=== PATIENT | female | born 1950 | race Caucasian/White ===

== ENCOUNTER 2017-09-05 18:17 | Inpatient (IN) | payer MEDICAID, OTHER ==
[~2017-09-05] VITALS: Ht 157.5 cm; Wt 47.2 kg
[2017-09-05] MEDS ORDERED: ACETAMINOPHEN 500 MG TAB PO STA (18:24)
[2017-09-05] MEDS ORDERED: SODIUM CHLORIDE 0.9% 1L BAG IV* STA (18:24)
[2017-09-05] MEDS ORDERED: CEFEPIME 2GM/50 ML (PMX) 50 ML IVPB STA (18:31)
[2017-09-05] MEDS ORDERED: VANCOMYCIN 1 GM (PMX) 250 ML IVPB ONE (19:00)
--- NOTE | 2017-09-05 19:30 | ERD ---
ER Documentation Chief Complaint Chief Complaint FEVER & DIARRHEA TODAY HPI This is a 67-year-old female who presents with her daughter and granddaughter. They are interpreting for the patient. They state that just today the patient started to develop fever, generalized body aches and malaise. She is describing generalized diffuse cramping abdominal discomfort with several episodes of loose stool. No recent vomiting. Mild headache that is frontal and gradual onset without rash or neck stiffness. No recent cough or shortness of breath noted. No abdominal surgical history. The patient is a diabetic. ROS All systems reviewed and are negative except as per history of present illness. Allergies Allergies: Coded Allergies: No Known Allergy (Unverified , 09/05/17) PMhx/Soc History of Surgery: Yes (C-SECTIONS) Anesthesia Reaction: No Hx Neurological Disorder: No Hx Respiratory Disorders: No Hx Cardiac Disorders: No Hx Psychiatric Problems: No Hx Miscellaneous Medical Probl: Yes (DM) Hx Alcohol Use: No Hx Substance Use: No Hx Tobacco Use: No Smoking Status: Never smoker FmHx Family History: diabetes Physical Exam Vitals Vital Signs Date Time Temp Pulse Resp B/P Pulse Ox O2 Delivery O2 Flow Rate FiO2 09/05/17 20:33 99.7 95 26 121/67 99 Room Air 09/05/17 19:30 100.0 100 16 147/58 97 Room Air 09/05/17 18:30 100.4 94 21 164/68 100 Room Air 09/05/17 18:19 103.5 106 22 158/70 98 Physical Exam General: Ill-appearing and in slight distress. Head: Normocephalic, atraumatic. Eyes: Pupils equally reactive, EOM intact ENT: Moist mucous membranes Neck: Supple, no lymphadenopathy Respiratory: Lungs clear bilaterally, no distress Cardiovascular: Tachycardia, no murmurs, rubs, or gallops Abdominal: Soft, mild diffuse tenderness without rebound or guarding, no peritonitis : Deferred MSK: No edema, no unilateral swelling, 5/5 strength Neurologic: Alert and oriented, moving all extremities, normal speech, no focal weakness, no cerebellar signs, no meningismus Skin: No rash Psych: Tearful mood Result Diagram: 09/05/17 1835 09/05/17 183 Results 24 hrs Laboratory Tests Test 09/05/17 18:35 09/05/17 20:13 10/29/17 20:45 White Blood Count 16.810^3/ul Red Blood Count 3.8210^6/ul Hemoglobin 11.4g/dl Hematocrit 34.2% Mean Corpuscular Volume 89.5fl Mean Corpuscular Hemoglobin 29.8pg Mean Corpuscular Hemoglobin Concent 33.3g/dl Red Cell Distribution Width 12.7% Platelet Count 38769^3/UL Mean Platelet Volume 9.8fl Neutrophils % 76.5% Lymphocytes % 17.5% Monocytes % 4.7% Eosinophils % 0.7% Basophils % 0.2% Nucleated Red Blood Cells % 0.0/100WBC Neutrophils # 12.910^3/ul Lymphocytes # 2.910^3/ul Monocytes # 0.810^3/ul Eosinophils # 0.110^3/ul Basophils # 0.010^3/ul Nucleated Red Blood Cells # 0.010^3/ul Prothrombin Time 12.8Sec Prothrombin Time Ratio 1.0 INR International Normalized Ratio 0.96 Activated Partial Thromboplast Time 28.0Sec Sodium Level 137mmol/L Potassium Level 4.4mmol/L Chloride Level 102mmol/L Carbon Dioxide Level 21mmol/L Anion Gap 18 Blood Urea Nitrogen 16mg/dl Creatinine 0.61mg/dl Glucose Level 445mg/dl Lactic Acid Level 1.7mmol/L Calcium Level 9.2mg/dl Total Bilirubin 0.7mg/dl Direct Bilirubin 0.00mg/dl Indirect Bilirubin 0.7mg/dl Aspartate Amino Transf (AST/SGOT) 26IU/L Alanine Aminotransferase (ALT/SGPT) 25IU/L Alkaline Phosphatase 237IU/L Troponin I < 0.012ng/ml Total Protein 7.7g/dl Albumin 4.4g/dl Globulin 3.30g/dl Albumin/Globulin Ratio 1.33 Lipase 68U/L Bedside Glucose 352mg/dL Urine Color STRAW Urine Clarity CLEAR Urine pH 7.0 Urine Specific [place] 1.016 Urine Ketones NEGATIVEmg/dL Urine Nitrite POSITIVEmg/dL Urine Bilirubin NEGATIVEmg/dL Urine Urobilinogen NEGATIVEmg/dL Urine Leukocyte Esterase TRACELeu/ul Urine Microscopic RBC 4/HPF Urine Microscopic WBC 3/HPF Urine Bacteria FEW/HPF Urine Hemoglobin 1+mg/dL Urine Glucose 3+mg/dL Urine Total Protein NEGATIVEmg/dl Current Medications Medications (Trade) Dose Ordered Sig/Herbie Route PRN Reason Start Time Stop Time Status Last Admin Dose Admin Sodium Chloride (NS) 1,410 ml BOLUS OVER 2 HOURS STAT IV* 09/05/17 18:24 09/05/17 18:25 DC 09/05/17 18:58 Acetaminophen 1000 mg 1,000 mg ONCE STAT PO 09/05/17 18:24 09/05/17 18:25 DC 09/05/17 18:58 Cefepime HCl 50 ml @ 100 mls/hr ONCE STAT IVPB 09/05/17 18:31 09/05/17 19:00 DC 09/05/17 18:58 Vancomycin HCl (Vancocin) 250 ml @ 125 mls/hr ONCE ONCE IVPB 09/05/17 19:00 09/05/17 20:59 DC 09/05/17 18:58 Insulin Human Lispro (Humalog) 8 unit ONCE STAT SC 09/05/17 19:39 09/05/17 19:50 DC 09/05/17 19:56 Ondansetron HCl (Zofran Inj) 4 mg BRIDGE ORDER PRN IV NAUSEA AND/OR VOMITING 09/05/17 21:30 09/06/17 21:29 Acetaminophen (Tylenol Tab) 650 mg ER BRIDGE PRN PO MILD PAIN/FEVER 09/05/17 21:30 09/06/17 21:29 Procedures/MDM EKG, MONITORS, & DIAGNOSTIC IMAGING: EKG: I reviewed and interpreted a 12-lead EKG. Rhythm: Normal sinus rhythm Ectopy: None Intervals: No abnormalities ST segments: No elevations or depressions T waves: No contiguous inversions Chest x-ray: I reviewed and interpreted a 1 view of the chest Mediastinum: No enlargement Cardiac silhouette: No cardiomegaly Airspace: Patchy interstitial process left greater than right concern for pneumonia Bones: No evidence of fracture CT abdomen and pelvis: IMPRESSION: 1. Bronchiolitis in the visualized right middle lobe with a sub solid 10 mm nodule in the medial basal right lower lobe with surrounding ground-glass opacities, which may be infectious/inflammatory in nature given the additional findings. Additional nonspecific ground-glass opacities scattered throughout both lungs with evidence of bronchitis. Dedicated chest CT may be warranted for further evaluation. 2. Distended urinary bladder with mild bilateral hydroureteronephrosis, but no radiopaque obstructing stone identified. Differential considerations include neurogenic bladder and bladder outlet obstruction. 3. Simple 4 cm right adnexal cyst. Pelvic ultrasound is recommended for further evaluation. 4. Vascular calcifications consistent with atherosclerosis. RPTAT: HLBP LAB INTERPRETATION: Cytosis but normal lactic acid, possible urinary tract infection MEDICAL DECISION MAKING: The patient presents with significant fever of 103.5 with abdominal pain and diarrhea. Her presentation is very concerning for sepsis of unclear etiology, consider viral process as well as influenza. No risk factors for C. difficile colitis. The patient does describe generalized abdominal pain prompting laboratory testing and CT imaging of the abdomen and pelvis. No clinical signs or symptoms concerning for meningitis. The patient will require sepsis screening, fluid resuscitation, symptom control and likely empiric antibiotics. The patient will likely require hospitalization. Strong suspicion for urinary tract infection ER COURSE: Patient was written for 30 cc/kg bolus of normal saline, blood cultures were taken. The patient was given empiric vancomycin and cefepime. Antipyretics provided. The patient has hyperglycemia. Screening for DKA will be initiated. Fluids have already been initiated. The patient has Sirs with a potential source concerning for sepsis however no evidence of severe sepsis or septic shock. The patient was given appropriate fluids and antibiotics and has defervesced and vital signs have normalized. She is hemodynamically stable and does not require central line or pressors. Hyperglycemia noted without diabetic ketoacidosis, Humalog provided subcutaneously. IV fluids provided. Trending down appropriately. I kept the patient and/or family informed of laboratory and diagnostic imaging results throughout the emergency room course. DISPOSITION PLAN: Med/Surgical admission CONSULTATION: Accepting care team and consultations: I discussed the current laboratory data, diagnostic imaging and emergency care provided. Admitting team: Dr. Goodwin Admitting team indication: Insurance directed Sepsis Documentation: Patient's infectious symptoms have not stabilized and the patient is at risk of rapid decompensation. The patient will be admitted for careful hydration, antibiotic therapy, and infectious source control. SEVERE SEPSIS CRITERIA: Infectious source: Urinary tract infection versus pneumonia End organ damage indicated by: No endorgan dysfunction noted SEPSIS MANAGEMENT Time of recognition of severe sepsis/septic shock: Approximately 9 PM 3 HOUR BUNDLE Blood cultures x 2 before broad-spectrum antibiotics: Yes 30 ml/kg NS bolus Completed Initial lactate less than 2 Repeat lactate pending SEPTIC SHOCK ASSESSMENT: Septic shock criteria not met No lactic acid > 4.0 No persistent hypotension (SBP < 90 or 40 mmHg drop, MAP < 65) despite 30 mL/kg IV fluid bolus VOLUME REASSESSMENT FOR SEPTIC SHOCK: Not indicated PERSISTENT HYPOTENSION TREATMENT: Comfort care No Central line Not Required Vasopressor started Not required I considered further perfusion assessment with CVP measurement, SCVO2, bedside ultrasound volume assessment, passive leg raise, trial of further fluid bolus. And proceeded with 30 ml/kg fluid bolus of NSS, broad spectrum antbiotics, and admission. CRITICAL CARE Critical care time 35 minutes Emergent fluid management while maintaining close respiratory support. Provision of immediate and broad-spectrum antibiotic therapy. Simultaneous assessment for possible sources in order to direct targeted therapy. Consideration for invasive and chemical support to prevent cardiopulmonary collapse. Critical care time is independent of procedures performed. Departure Diagnosis: Primary Impression: Sepsis Sepsis type: sepsis due to unspecified organism Qualified Code: A41.9 - Sepsis, due to unspecified organism Additional Impressions: Urinary tract infection Urinary tract infection type: acute cystitis Hematuria presence: without hematuria Qualified Code: N30.00 - Acute cystitis without hematuria Community acquired pneumonia Laterality: left Lung location: unspecified part of lung Qualified Code: J18.9 - Community acquired pneumonia of left lung, unspecified part of lung Hyperglycemia Condition: Stable QUETA SALAZAR MD Sep 05, 2017 19:30
[2017-09-05] MEDS ORDERED: INSULIN LISPRO 100 UNIT/ML VIAL SC STA (19:39)
--- NOTE | 2017-09-05 19:54 | RADRPT ---
PROCEDURE: CT abdomen and pelvis without contrast. CLINICAL INDICATION: Sepsis. TECHNIQUE: CT of the abdomen and pelvis without contrast was performed on a multidetector high-reso lution CT scanner. Coronal and sagittal reformatted images were obtained from the axial source image s. Images were reviewed on a high-resolution PACS workstation. The total exam CTDI equals 7.35 mGy a nd the total exam DLP equals 409.83 mGy-cm. One or more of the following dose reduction techniques were used: - Automated exposure control. - Adjustment of the mA and/or kV according to patient size. - Use of iterative reconstruction technique. COMPARISON: None available. FINDINGS: Visualized lower thorax: There is a 10 mm solid nodule in the medial basal left lower lobe with lakia rounding ground-glass opacity. There is scattered tree in bud and ground-glass opacities within the visualized inferior right middle lobe and patchy ground-glass opacity elsewhere throughout both lung bases. There is bronchial wall thickening. The visualized heart is unremarkable. Hepatobiliary system and spleen: The liver is grossly unremarkable. There is no intra or extrahepat ic biliary ductal dilatation. The gallbladder is grossly unremarkable. The spleen is grossly unremar kable. The pancreas is grossly unremarkable. Adrenal glands and genitourinary system: The adrenal glands are grossly unremarkable. There is mild bilateral hydronephrosis and hydroureter with no radiopaque obstructing stone identified. The urina ry bladder is distended, but otherwise grossly unremarkable. There is a simple 4 cm right adnexal c yst. The uterus and left adnexa are grossly unremarkable. Gastrointestinal system: There is no bowel wall thickening or evidence of obstruction. The appendi x is not identified, but there is no focal inflammatory process in the right lower quadrant. Peritoneum, vascular, and lymphatics: There is no free intraperitoneal air or free fluid. There is no mesenteric or retroperitoneal adenopathy. There are atherosclerotic changes of the aorta, which i s nonaneurysmal. Musculoskeletal system and soft tissues: There is mild to moderate multilevel degenerative enthesop athy. There are no concerning osseous lesions. The soft tissues are unremarkable. IMPRESSION: 1. Bronchiolitis in the visualized right middle lobe with a sub solid 10 mm nodule in the medial ba yuridia right lower lobe with surrounding ground-glass opacities, which may be infectious/inflammatory i n nature given the additional findings. Additional nonspecific ground-glass opacities scattered thro ughout both lungs with evidence of bronchitis. Dedicated chest CT may be warranted for further evalu ation. 2. Distended urinary bladder with mild bilateral hydroureteronephrosis, but no radiopaque obstructi ng stone identified. Differential considerations include neurogenic bladder and bladder outlet obstr uction. 3. Simple 4 cm right adnexal cyst. Pelvic ultrasound is recommended for further evaluation. 4. Vascular calcifications consistent with atherosclerosis. RPTAT: HLBP .Amrik Lugo MD, Date Time Electronically viewed and signed by .Amrik Lugo MD, on 09/05/2017 19:54 .P/
[2017-09-05] MEDS ORDERED: ACETAMINOPHEN 325 MG TAB PO PRN (21:30)
[2017-09-05] MEDS ORDERED: ONDANSETRON 4 MG INJ IV PRN ×2 (21:30→23:30)
--- NOTE | 2017-09-05 21:37 | RADRPT ---
PROCEDURE: X-ray Chest. CLINICAL INDICATION: Sepsis. TECHNIQUE: Single view chest x-ray. COMPARISON: None available. FINDINGS: There are atherosclerotic changes of the aorta. The cardiomediastinal silhouette is withi n normal limits. There is patchy bibasilar atelectasis versus pneumonitis without focal consolidati on, effusion, or pneumothorax. There are no acute osseous abnormalities. IMPRESSION: 1. Patchy bibasilar subsegmental atelectasis versus pneumonitis, left greater than right. 2. Vascular calcifications consistent with atherosclerosis. RPTAT: HLBP .Amrik Lugo MD, Date Time Electronically viewed and signed by .Amrik Lugo MD, MD on 09/05/2017 21:36 .P/
[2017-09-05 21:47] VITALS: PULSE 80; TEMP 98.9
[2017-09-05 22:23] VITALS: BP 106/57; RESP 18; RESP 80
[2017-09-05 23:41] VITALS: Ht 157.5 cm; Wt 47.2 kg
[2017-09-06] MEDS ORDERED: GLUCAGON 1 MG INJ IM PRN (00:30)
[2017-09-06] MEDS ORDERED: GLUCOSE GEL 15 GRAM TUBE BUCCAL PRN (00:30)
[2017-09-06] MEDS ORDERED: DEXTROSE 50% 50 ML SYRINGE IV PRN ×2 (00:30)
[2017-09-06] MEDS ORDERED: GLUCOSE GEL 15 GRAM TUBE PO PRN ×2 (00:30)
[2017-09-06] MEDS: ACCU-CHEK XX SCH ×2 (02:00)
[2017-09-06 02:28] VITALS: BP 119/58; RESP 18
[2017-09-06] MEDS ORDERED: VANCOMYCIN IV PER PHARMACY XX SCH (05:00)
[2017-09-06 08:02] VITALS: BP 120/56; RESP 18
[2017-09-06] MEDS: INSULIN GLARGINE [LANtus] 3 ML PEN SC SCH (08:16)
[2017-09-06] MEDS: INSULIN ASPART [NOVOLOG] 3 ML PEN SC SCH ×7 (08:27→21:00)
--- NOTE | 2017-09-06 08:52 | HP ---
Date/Time of Note Date/Time of Note DATE: 09/06/17 TIME: 08:42 Assessment/Plan VTE Prophylaxis VTE Prophylaxis Intervention: heparin Lines/Catheters IV C[facility]ter Type (from [facility] Saline Lock Assessment/Plan Assessment/Plan 1. Sepsis, as evidenced by leukocytosis and fever: Pneumonia vs gastroenteritis -IV antibiotics -Follow-up culture results including respiratory culture and stool studies -If no improvement, will do throat swab 2. Pulmonary nodule and a bronchiolitis --will order a dedicated CT chest for better evaluation 3. Diabetes with hyperglycemia -Check A1c -Insulin while in-house with adjustment as needed HPI/ROS Admit Date/Time Admit Date/Time Sep 05, 2017 at 21:13 Hx of Present Illness This is a 67-year-old female with a history of diabetes who presented to the emergency department complaining of fever, abdominal pain and generalized weakness x few days. She also reported diarrhea for the past few days, 3-4 loose bowel movement per day. She reported nausea but no vomiting. She also reported sore throat for the past few days. Denied recent travel or sick contacts. When she presented to the ER, she was febrile with a temperature of 102.5. WBC 17,000, glucose 445. Chest x-ray shows patchy bilateral segmental atelectasis versus pneumonitis. CT abdomen/pelvis showed bronchiolitis, right middle lobe with 10 mm nodule. Mild bilateral hydroureteronephrosis. PMH/Family/Social Social History Smoking Status: Never smoker Exam/Review of Systems Vital Signs Vitals Vital Signs Date Time Temp Pulse Resp B/P Pulse Ox O2 Delivery O2 Flow Rate FiO2 09/06/17 08:02 98.2 81 18 120/56 99 09/05/17 21:47 Room Air Intake and Output 09/05/17 09/05/17 09/06/17 15:00 23:00 07:00 Intake Total 300 ml Balance 300 ml Exam Constitutional: other (Was sleepy but arousable. Appears somehow weak) Head: atraumatic, normocephalic Eyes: EOMI, PERRL ENMT: other (Poor dentition) Respiratory: clear to auscultation, normal air movement Cardiovascular: nl pulses, regular rate and rhythm Gastrointestinal: soft, tender Extremities: normal pulses Labs Result Diagram: 09/06/17 0516 09/06/17 05 Medications Medications Current Medications Acetaminophen (Tylenol Tab) 650 mg Q6H PRN PO PAIN AND OR ELEVATED TEMP; Start 09/05/17 at 23:30 Ondansetron HCl (Zofran Inj) 4 mg Q6H PRN IV NAUSEA AND/OR VOMITING; Start at 23:30 Diagnostic Test (Pha) (Accu-Chek) 1 ea 02 XX ; Start 09/06/17 at 02:00 Diagnostic Test (Pha) (Accu-Chek) 1 ea 02 XX ; Start 09/06/17 at 02:00 Miscellaneous Information 1 ea NOTE XX ; Start 09/06/17 at 00:30 Glucose (Glutose) 15 gm Q15M PRN PO DECREASED GLUCOSE; Start 09/06/17 at 00:30 Glucose (Glutose) 22.5 gm Q15M PRN PO DECREASED GLUCOSE; Start 09/06/17 at 00: 30 Dextrose (D50w Syringe) 25 ml Q15M PRN IV DECREASED GLUCOSE; Start 09/06/17 at 00:30 Dextrose (D50w Syringe) 50 ml Q15M PRN IV DECREASED GLUCOSE; Start 09/06/17 at 00:30 Glucagon (Glucagen) 1 mg Q15M PRN IM DECREASED GLUCOSE; Start 09/06/17 at 00: 30 Glucose (Glutose) 15 gm Q15M PRN BUCCAL DECREASED GLUCOSE; Start 09/06/17 at 00:30 Insulin Glargine 20 unit 20 unit DAILY@08 SC Last administered on 09/06/17 08 :16; Admin Dose 20 UNIT; Start 09/06/17 at 08:00 Cefepime HCl 50 ml @ 100 mls/hr Q12 IVPB ; Start 09/06/17 at 09:00 Vancomycin HCl (Vancocin) 250 ml @ 125 mls/hr Q24H IVPB ; Start 09/06/17 at 17 :00 SIMONE DÍAZ MD Sep 06, 2017 08:52
[2017-09-06] MEDS: CEFEPIME 1GM/50 ML (PMX) 50 ML IVPB SCH ×2 (09:05→20:59)
--- NOTE | 2017-09-06 09:23 | PN ---
Date/Time of Note Date/Time of Note DATE: 09/06/17 TIME: 09:23 Assessment/Plan VTE Prophylaxis VTE Prophylaxis Intervention: ambulation Lines/Catheters IV Catheter Type (from Nrsg): Saline Lock Assessment/Plan Chief Complaint/Hosp Course 67 yo female with hx DMII, came in with fever/dysuria/lower abdominal cramps. 1.Dysuria/Pelvic pain, likely 2/2 UTI /possible neurogenic bladder with bilateral hydroureteronephrosis -Insert Dockery, start Flomax,pain control PRN. -F/u Urine CS. 2.Hyperglycemia with DM11. -Add A1C to labs -Continue Lantus/premeals/ISS and titrate as needed -carb controlled diet, DM education. 3.Sepsis likely 2/2presumptive UTI vs possible tracheobronchitis -Continue abx.F/u CS. 4. Lung nodule. CT abd showed Right middle lobe with a sub solid 10 mm nodule in the medial basal right lower lobe with surrounding ground-glass opacities, solid 10 mm nodule in the medial basal right lower lobe with surrounding ground- glass opacities -Obtain dedicated chest CT with IV contrast 5.Simple 4 cm right adnexal cyst. -Pelvic ultrasound for further evaluation. -Obtain biomarkers with CA19-9 6.Anemia,likely chronic. -Monitor. Patient was seen in collaboration with . Problems: Subjective 24 Hr Interval Summary Free Text/Dictation Patient with continued lower abdominal pain. Diarrhea improved. having urinary dribbling/frequency/burning. Afebrile now. Denes SOB/Cough. Patient also reported 10kg weight loss in last [id number] also having poor appetite.Denies any melena,hematochezia,N/V Exam/Review of Systems Vital Signs Vitals Vital Signs Date Time Temp Pulse Resp B/P Pulse Ox O2 Delivery O2 Flow Rate FiO2 09/06/17 08:02 98.2 81 18 120/56 99 09/05/17 21:47 Room Air Intake and Output 09/05/17 09/05/17 09/06/17 15:00 23:00 07:00 Intake Total 300 ml Balance 300 ml Exam General: Thin-bulit, frail looking female, not in any acute distress . HEENT: Normocephalic, Atraumatic, No laceration or hematoma; Eyes: PEERL, Conjunctiva clear, Anicteric sclera Neck: Supple without any lymphadenopathy, nontender, no JVD, no carotid bruits, trachea midline, no thyromegaly Cardiac: S1, S2 auscultated, regular rhythm and rate, no mumurs or gallop Pulmonary: Normal respiratory effort. Chest clear to auscultation bilaterally, no adventitious breath sounds GI:Diffuse tenderness to lower abdomen/Pelvic area. Soft, no masses, no rebound tenderness or guarding. Bowel sounds active on all four quadrants Genitourinary: +Dysuria/frequency. Deferred Extremities: No cyanosis, clubbing, or edema. Pulses [2+] bilaterally. Full ROM on all four extremities. No focal weakness appreciated. Neurologic: Alert to person, place, time, and situation. Affect appropriate, intact sensation. Skin: Clean,dry, and intact. No ecchymosis, no rashes, or lesions Results Result Diagram: 09/06/17 0516 09/06/17 0516 Results 24 hrs Laboratory Tests Test 09/05/17 18:35 09/05/17 20:13 09/05/17 20:45 09/05/17 21:00 White Blood Count 16.8 H Red Blood Count 3.82 L Hemoglobin 11.4 L Hematocrit 34.2 L Mean Corpuscular Volume 89.5 Mean Corpuscular Hemoglobin 29.8 Mean Corpuscular Hemoglobin Concent 33.3 Red Cell Distribution Width 12.7 Platelet Count 246 Mean Platelet Volume 9.8 Neutrophils % 76.5 Lymphocytes % 17.5 Monocytes % 4.7 Eosinophils % 0.7 Basophils % 0.2 Nucleated Red Blood Cells % 0.0 Neutrophils # 12.9 H Lymphocytes # 2.9 Monocytes # 0.8 Eosinophils # 0.1 Basophils # 0.0 Nucleated Red Blood Cells # 0.0 Prothrombin Time 12.8 Prothrombin Time Ratio 1.0 INR International Normalized Ratio 0.96 Activated Partial Thromboplast Time 28.0 Sodium Level 137 Potassium Level 4.4 Chloride Level 102 Carbon Dioxide Level 21 Anion Gap 18 H Blood Urea Nitrogen 16 Creatinine 0.61 Glucose Level 445 *H Lactic Acid Level 1.7 1.9 Calcium Level 9.2 Total Bilirubin 0.7 Direct Bilirubin 0.00 Indirect Bilirubin 0.7 Aspartate Amino Transf (AST/SGOT) 26 Alanine Aminotransferase (ALT/SGPT) 25 Alkaline Phosphatase 237 H Troponin I < 0.012 Total Protein 7.7 Albumin 4.4 Globulin 3.30 H Albumin/Globulin Ratio 1.33 Lipase 68 Bedside Glucose 352 H Urine Color STRAW Urine Clarity CLEAR Urine pH 7.0 Urine Specific [place] 1.016 Urine Ketones NEGATIVE Urine Nitrite POSITIVE A Urine Bilirubin NEGATIVE Urine Urobilinogen NEGATIVE Urine Leukocyte Esterase TRACE A Urine Microscopic RBC 4 Urine Microscopic WBC 3 Urine Bacteria FEW A Urine Hemoglobin 1+ H Urine Glucose 3+ H Urine Total Protein NEGATIVE Test 09/05/17 21:51 09/05/17 23:12 09/05/17 23:18 09/06/17 05:16 Bedside Glucose 261 H 168 Lactic Acid Level 1.1 White Blood Count 13.4 #H Red Blood Count 3.26 L Hemoglobin 9.8 L Hematocrit 30.2 L Mean Corpuscular Volume 92.6 Mean Corpuscular Hemoglobin 30.1 Mean Corpuscular Hemoglobin Concent 32.5 Red Cell Distribution Width 12.9 Platelet Count 223 Mean Platelet Volume 10.2 Neutrophils % 74.0 Lymphocytes % 19.2 Monocytes % 5.5 Eosinophils % 0.7 Basophils % 0.3 Nucleated Red Blood Cells % 0.0 Neutrophils # 9.9 H Lymphocytes # 2.6 Monocytes # 0.7 Eosinophils # 0.1 Basophils # 0.0 Nucleated Red Blood Cells # 0.0 Sodium Level 141 Potassium Level 3.8 Chloride Level 112 H Carbon Dioxide Level 21 Anion Gap 12 Blood Urea Nitrogen 12 Creatinine 0.56 Glucose Level 213 # Calcium Level 8.3 L Phosphorus Level 4.1 Magnesium Level 1.8 Test 09/06/17 08:13 Bedside Glucose 215 Medications Medications Current Medications Acetaminophen (Tylenol Tab) 650 mg Q6H PRN PO PAIN AND OR ELEVATED TEMP; Start 09/05/17 at 23:30 Ondansetron HCl (Zofran Inj) 4 mg Q6H PRN IV NAUSEA AND/OR VOMITING; Start at 23:30 Diagnostic Test (Pha) (Accu-Chek) 1 ea 02 XX ; Start 09/06/17 at 02:00 Diagnostic Test (Pha) (Accu-Chek) 1 ea 02 XX ; Start 09/06/17 at 02:00 Miscellaneous Information 1 ea NOTE XX ; Start 09/06/17 at 00:30 Glucose (Glutose) 15 gm Q15M PRN PO DECREASED GLUCOSE; Start 09/06/17 at 00:30 Glucose (Glutose) 22.5 gm Q15M PRN PO DECREASED GLUCOSE; Start 09/06/17 at 00: 30 Dextrose (D50w Syringe) 25 ml Q15M PRN IV DECREASED GLUCOSE; Start 09/06/17 at 00:30 Dextrose (D50w Syringe) 50 ml Q15M PRN IV DECREASED GLUCOSE; Start 09/06/17 at 00:30 Glucagon (Glucagen) 1 mg Q15M PRN IM DECREASED GLUCOSE; Start 09/06/17 at 00: 30 Glucose (Glutose) 15 gm Q15M PRN BUCCAL DECREASED GLUCOSE; Start 09/06/17 at 00:30 Insulin Glargine 20 unit 20 unit DAILY@08 SC Last administered on 09/06/17 08 :16; Admin Dose 20 UNIT; Start 09/06/17 at 08:00 Cefepime HCl 50 ml @ 100 mls/hr Q12 IVPB Last administered on 09/06/17 09:05 ; Admin Dose 100 MLS/HR; Start 09/06/17 at 09:00 Vancomycin HCl (Vancocin) 250 ml @ 125 mls/hr Q24H IVPB ; Start 09/06/17 at 17 :00 ELVIA VASQUEZ NP Sep 06, 2017 09:23 ELVIA VASQUEZ NP Sep 06, 2017 09:23
[2017-09-06] MEDS ORDERED: IODIXANOL LOCM 100 ML BTL ONE (10:05)
[2017-09-06] MEDS ORDERED: SOD CHLORIDE 0.9% 100 ML ONE (10:05)
[2017-09-06] MEDS: SOD CHLORIDE 0.45% 1,000 ML IV SCH ×2 (11:36→23:28)
[2017-09-06] MEDS: VANCOMYCIN 500MG/NS (PMX) 100 ML IVPB SCH ×2 (11:39→23:28)
[2017-09-06 14:59] VITALS: BP 110/54; RESP 16
--- NOTE | 2017-09-06 15:54 | RADRPT ---
PROCEDURE: US Pelvis. CLINICAL INDICATION: History of adnexal cyst. TECHNIQUE: The pelvis was evaluated with transabdominal sonography in the axial and sagittal plane s. This is a limited study as the patient refused transvaginal sonography. COMPARISON: CT scan of the abdomen and pelvis dated 09/05/2017 which demonstrated a right adnexal 4 cm cyst. FINDINGS: Uterus: 4.6 x 1.8 x 3.2 cm. Endometrium: Not visualized. Right ovary: 4.4 x 3.3 x 3.1 cm. Left ovary: Not visualized. Uterine masses: None. Ovarian masses: There is a benign-appearing right ovarian cyst measuring 3.7 x 2.7 x 2.9 cm. There a re no internal echoes or septations. The left ovary is not visualized. Color Doppler and pulsed Dopp ler sonography demonstrate normal flow to the right ovary. Other pelvic masses: None. Free fluid: None. IMPRESSION: 1. Endometrium and left ovary not visualized. 2. Benign-appearing right ovarian cyst measuring 3.7 x 2.7 x 2.9 centimeter. Follow-up ultrasound i n 3 months is advised. 3. Otherwise unremarkable pelvic ultrasound. RPTAT: QQ .Stepan Walton MD, MD Date Time Electronically viewed and signed by .Stepan Walton MD, on 09/06/2017 15:53 .R/
[2017-09-06] MEDS ORDERED: VANCOMYCIN 1 GM in NS 250 ML IVPB SCH (17:00)
--- NOTE | 2017-09-06 18:28 | RADRPT ---
PROCEDURE: CT Chest with contrast. CLINICAL INDICATION: Sepsis. TECHNIQUE: CT scan of the chest with contrast was performed following the uncomplicated intravenou s administration of 85 cc of Omnipaque 350. Coronal and sagittal reformatted images were obtained f rom the axial source images. Images were reviewed on a high-resolution PACS workstation. CTDIvol (mG y): 4.84; Total Exam DLP (mGy-cm): 172.43. One or more of the following dose reduction techniques were utilized: - Automated exposure control. - Adjustment of the mA and/or kV according to patient size. - Use of iterative reconstruction technique. COMPARISON: Chest x-ray 09/05/2017. Chest x-ray 09/05/2017. FINDINGS: Limited imaging of the lower neck demonstrates a 2.5 x 1.4 x 1.7 cm solid and cystic nodule with sca ttered coarse calcification within the thyroid isthmus. The thyroid gland is diffusely enlarged and mildly heterogeneous. The heart is not enlarged. There is no pericardial effusion. There is no bulky mediastinal, hilar or axillary lymphadenopathy. Scattered small mediastinal and hilar lymph nodes are present. The thor acic aorta is normal in caliber. The main pulmonary artery is mildly enlarged. Faint ground-glass tree in bud opacities are seen within the right middle lobe and to a slightly sim ilar degree within the left lower lobe compatible with bronchiolitis. There is a small 9-10 mm subpl eural sub solid nodule of the left lower lobe, which is grossly unchanged. Mild diffuse bronchial wa ll thickening is observed. There is no dominant dense pulmonary consolidation. There is no pleural e ffusion. Limited imaging of the upper abdomen is unremarkable. Degenerative changes of the thoracic spine are observed. Body wall soft tissues are unremarkable. IMPRESSION: Right middle and left lower lobe bronchiolitis. Small sub solid nodule of the left lower lobe, unchanged. Follow-up may be obtained in 6-12 months. 2.5 cm complex solid and cystic thyroid nodule. Recommend further characterization with dedicated th yroid ultrasound. RPTAT: HLST .Ayala Killian MD, MD Date Time Electronically viewed and signed by .Ayala Killian MD, on 09/06/2017 18:27 .T/
[2017-09-06 20:12] VITALS: BP 137/63; RESP 18
[2017-09-06] MEDS: TAMSULOSIN (SR) 0.4 MG CAP PO SCH (21:00)
[2017-09-06] MEDS: ACETAMINOPHEN 325 MG TAB PO PRN (22:04)
[2017-09-07] MEDS: ACCU-CHEK XX SCH ×2 (02:00)
[2017-09-07 02:26] VITALS: BP 117/59; RESP 18
[2017-09-07 07:51] VITALS: BP 118/61; RESP 16
[2017-09-07] MEDS: INSULIN ASPART [NOVOLOG] 3 ML PEN SC SCH ×7 (08:40→20:54)
[2017-09-07] MEDS: INSULIN GLARGINE [LANtus] 3 ML PEN SC SCH (08:42)
[2017-09-07] MEDS: CEFEPIME 1GM/50 ML (PMX) 50 ML IVPB SCH ×2 (08:57→20:50)
[2017-09-07] MEDS: ALBUTEROL/IPRATROPIUM (NEB) 3 ML AMP HHN SCH ×4 (09:00→20:00)
[2017-09-07] MEDS ORDERED: GUAIFENESIN/DM 5ML CUP PO PRN (09:00)
--- NOTE | 2017-09-07 09:14 | PN ---
Date/Time of Note Date/Time of Note DATE: 09/07/17 TIME: 09:01 Assessment/Plan VTE Prophylaxis VTE Prophylaxis Intervention: ambulation Lines/Catheters IV Catheter Type (from Nrs): Saline Lock Urinary Cath still in place: Yes Reason Cath still needed: other (indicate) Assessment/Plan Chief Complaint/Hosp Course 67 yo female with hx DMII came in with diarrhea, fever/dysuria/lower abdominal cramps. 1.Dysuria/Pelvic pain, likely 2/2 neurogenic bladder with bilateral hydroureteronephrosis which is secondary to long-standing history of poorly controlled diabetes. Significantly improved after insertion of Dockery. -Continue Flomax,pain control PRN. -Repeat renal ultrasound in a.m. 2. Poorly controlled DMII. A1c 12. With good glycemic control. -Continue Lantus/premeals/ISS and titrate as needed -carb controlled diet, DM education. 3. Status post sepsis, likely secondary to possible tracheobronchitis/ pneumonitis versus gastroenteritis. -Continue abx.F/u final CS and C. difficile studies. 4. Lung nodule. Stable appearance and CT. - Follow-up CT chest recommended in 6-12 months. 5. Benign ovarian cyst. -Follow-up ultrasound in 3 months is advised. 6. Right middle and left lower lobe bronchiolitis per imaging. Currently patient without any bronchospasm and she is clinically stable. -Bronchodilators, antibiotics. -Recommend lifestyle and home remedies and outpatient pulmonary follow-up. 7.Anemia,likely chronic. H&H stable. -Monitor. 8. Diarrhea, likely gastroenteritis. Resolving. -Follow-up C. difficile studies. 9. 2.5 cm complex solid and cystic thyroid nodule. Patient with low TSH. -Obtain full thyroid panel and a dedicated thyroid ultrasound. 10. Dietary protein deficiency. -Start protein supplements. Plan: Overall, patient with improvement in her symptoms. Will have physical therapy evaluate the patient. We will also add some protein supplements to her diet. Will repeat renal ultrasound in a.m. to follow-up on hydronephrosis status. If patient remains clinically stable, she can be possibly discharged with outpatient follow-up tomorrow. Patient was seen in collaboration with . Problems: Subjective 24 Hr Interval Summary Free Text/Dictation Patient doing well. She is afebrile. Denied cough, dyspnea, chest pain, palpitation, PND or orthopnea. Her abdominal pain is noticeable. She is tolerating diet. Exam/Review of Systems Vital Signs Vitals Vital Signs Date Time Temp Pulse Resp B/P Pulse Ox O2 Delivery O2 Flow Rate FiO2 09/07/17 07:51 98.3 84 16 118/61 100 09/05/17 21:47 Room Air Intake and Output 09/06/17 09/06/17 09/07/17 15:00 23:00 07:00 Intake Total 1800 ml 1475 ml Output Total 1250 ml 800 ml Balance 550 ml 675 ml Exam General: Thin-bulit, frail looking female, not in any acute distress . HEENT: Normocephalic, Atraumatic, No laceration or hematoma; Eyes: PEERL, Conjunctiva clear, Anicteric sclera Neck: Supple without any lymphadenopathy, nontender, no JVD, no carotid bruits, trachea midline, no thyromegaly Cardiac: S1, S2 auscultated, regular rhythm and rate, no mumurs or gallop Pulmonary: Normal respiratory effort. Chest clear to auscultation bilaterally, no adventitious breath sounds GI:Soft, nontender, no masses, no rebound tenderness or guarding. Bowel sounds active on all four quadrants Genitourinary: With Dockery. Denies any discomfort. Extremities: No cyanosis, clubbing, or edema. Pulses [2+] bilaterally. Full ROM on all four extremities. No focal weakness appreciated. Neurologic: Alert to person, place, time, and situation. Affect appropriate, intact sensation. Skin: Clean,dry, and intact. No ecchymosis, no rashes, or lesions Results Result Diagram: 09/07/17 0534 09/07/17 0534 Results 24 hrs Laboratory Tests Test 09/06/17 12:07 09/06/17 14:47 09/06/17 17:22 09/06/17 20:57 Bedside Glucose 100 107 148 Hemoglobin A1c 12.0 H Lactate Dehydrogenase 351 Prealbumin 11.1 L Triglycerides Level 103 Cholesterol Level 81 L LDL Cholesterol, Calculated 13 HDL Cholesterol 47 Cholesterol/HDL Ratio 1.7 Alpha Fetoprotein 1.54 Carcinoembryonic Antigen 1.4 CA 19-9 Antigen 137.0 H Thyroid Stimulating Hormone (TSH) 0.417 L Test 09/07/17 05:34 09/07/17 08:16 White Blood Count 7.5 # Red Blood Count 3.20 L Hemoglobin 9.9 L Hematocrit 29.8 L Mean Corpuscular Volume 93.1 Mean Corpuscular Hemoglobin 30.9 Mean Corpuscular Hemoglobin Concent 33.2 Red Cell Distribution Width 12.7 Platelet Count 228 Mean Platelet Volume 9.7 Neutrophils % 56.0 Lymphocytes % 34.6 Monocytes % 7.2 Eosinophils % 1.5 Basophils % 0.4 Nucleated Red Blood Cells % 0.0 Neutrophils # 4.2 Lymphocytes # 2.6 Monocytes # 0.5 Eosinophils # 0.1 Basophils # 0.0 Nucleated Red Blood Cells # 0.0 Sodium Level 143 Potassium Level 3.5 Chloride Level 113 H Carbon Dioxide Level 24 Anion Gap 10 Blood Urea Nitrogen 9 Creatinine 0.58 Glucose Level 140 # Calcium Level 8.5 Total Bilirubin 0.5 Direct Bilirubin 0.00 Indirect Bilirubin 0.5 Aspartate Amino Transf (AST/SGOT) 20 Alanine Aminotransferase (ALT/SGPT) 30 Alkaline Phosphatase 103 # Total Protein 6.3 # Albumin 2.7 #L Globulin 3.60 H Albumin/Globulin Ratio 0.75 Bedside Glucose 190 Medications Medications Current Medications Acetaminophen (Tylenol Tab) 650 mg Q6H PRN PO PAIN AND OR ELEVATED TEMP Last administered on 09/06/17t 22:04; Admin Dose 650 MG; Start 09/05/17 at 23:30 Ondansetron HCl (Zofran Inj) 4 mg Q6H PRN IV NAUSEA AND/OR VOMITING; Start at 23:30 Diagnostic Test (Pha) (Accu-Chek) 1 ea 02 XX ; Start 09/06/17 at 02:00 Diagnostic Test (Pha) (Accu-Chek) 1 ea 02 XX ; Start 09/06/17 at 02:00 Miscellaneous Information 1 ea NOTE XX ; Start 09/06/17 at 00:30 Glucose (Glutose) 15 gm Q15M PRN PO DECREASED GLUCOSE; Start 09/06/17 at 00:30 Glucose (Glutose) 22.5 gm Q15M PRN PO DECREASED GLUCOSE; Start 09/06/17 at 00: 30 Dextrose (D50w Syringe) 25 ml Q15M PRN IV DECREASED GLUCOSE; Start 09/06/17 at 00:30 Dextrose (D50w Syringe) 50 ml Q15M PRN IV DECREASED GLUCOSE; Start 09/06/17 at 00:30 Glucagon (Glucagen) 1 mg Q15M PRN IM DECREASED GLUCOSE; Start 09/06/17 at 00: 30 Glucose (Glutose) 15 gm Q15M PRN BUCCAL DECREASED GLUCOSE; Start 09/06/17 at 00:30 Insulin Glargine 20 unit 20 unit DAILY@08 SC Last administered on 09/06/17 08 :16; Admin Dose 20 UNIT; Start 09/06/17 at 08:00 Cefepime HCl 50 ml @ 100 mls/hr Q12 IVPB Last administered on 09/06/17 20:59 ; Admin Dose 100 MLS/HR; Start 09/06/17 at 09:00 Vancomycin HCl (Vancocin) 100 ml @ 100 mls/hr Q12H IVPB Last administered on 09/06/17 23:28; Admin Dose 100 MLS/HR; Start 09/06/17 at 11:00 Tamsulosin HCl 0.4 mg 0.4 mg HS PO Last administered on 09/06/17 21:00; Admin Dose 0.4 MG; Start 09/06/17 at 21:00 Sodium Chloride (1/2 NS) 1,000 ml @ 75 mls/hr [id number] IV Last administered on 09/06/17 23:28; Admin Dose 75 MLS/HR; Start 09/06/17 at 10:30 ELVIA VASQUEZ NP Sep 07, 2017 09:13
[2017-09-07] MEDS: SOD CHLORIDE 0.45% 1,000 ML IV SCH ×2 (13:10→18:01)
[2017-09-07] MEDS: VANCOMYCIN 500MG/NS (PMX) 100 ML IVPB SCH (13:21)
[2017-09-07 14:00] VITALS: BP 147/71; RESP 16
--- NOTE | 2017-09-07 14:13 | RADRPT ---
PROCEDURE: US Thyroid. CLINICAL INDICATION: Thyroid nodule. TECHNIQUE: High-resolution sonography of the thyroid was performed in the axial and sagittal plane s. COMPARISON: CT scan of the chest dated 09/06/2017 which demonstrated a 2.5 cm nodule in the isthmu s of the thyroid. FINDINGS: The right lobe measures 3.5 x 1.6 x 1.8 cm. The left lobe measures 3.7 x 1.7 x 1.7 cm. The isthmus measures 0.5 cm. The 2.5 cm nodule in the isthmus seen on the prior CT scan is not well seen with ultrasound. There i s a benign-appearing 0.9 cm in maximal diameter hypoechoic nodule in the right lobe and a benign-candice earing 0.8 cm in maximal diameter hypoechoic nodule in the left lobe. Thyroid echogenicity is normal. The thyroid is normal in size. IMPRESSION: 1. Small bilateral thyroid nodules, with a benign appearance. No further evaluation required. 2. The 2.5 cm nodule in the isthmus seen on prior CT scan is not well seen with ultrasound. Follow- up CT scan of the neck in 12 months is advised. 3. Otherwise unremarkable study. RPTAT: QQ .Stepan Walton MD, Date Time Electronically viewed and signed by .Stepan Walton MD, on 09/07/2017 14:13 .R/
[2017-09-07] MEDS: ACETAMINOPHEN 325 MG TAB PO PRN (16:00)
[2017-09-07 19:36] VITALS: BP 125/59; RESP 18
[2017-09-07] MEDS: TAMSULOSIN (SR) 0.4 MG CAP PO SCH (20:49)
[2017-09-08] MEDS: ALBUTEROL/IPRATROPIUM (NEB) 3 ML AMP HHN SCH ×6 (00:35→20:36)
[2017-09-08] MEDS: VANCOMYCIN 500MG/NS (PMX) 100 ML IVPB SCH ×2 (01:00→02:11)
[2017-09-08 02:00] VITALS: BP 119/58; RESP 18
[2017-09-08] MEDS: ACCU-CHEK XX SCH ×2 (02:00→02:04)
[2017-09-08 07:30] VITALS: BP 125/60; RESP 16
[2017-09-08] MEDS: INSULIN ASPART [NOVOLOG] 3 ML PEN SC SCH ×7 (08:45→20:58)
[2017-09-08] MEDS: SOD CHLORIDE 0.45% 1,000 ML IV SCH (08:48)
[2017-09-08] MEDS: INSULIN GLARGINE [LANtus] 3 ML PEN SC SCH (08:55)
[2017-09-08] MEDS: CEFEPIME 1GM/50 ML (PMX) 50 ML IVPB SCH (08:56)
--- NOTE | 2017-09-08 09:03 | PN ---
Date/Time of Note Date/Time of Note DATE: 09/08/17 TIME: 08:51 Assessment/Plan VTE Prophylaxis VTE Prophylaxis Intervention: ambulation Lines/Catheters IV Catheter Type (from Nrsg): Saline Lock Urinary Cath still in place: Yes Reason Cath still needed: other (indicate) Assessment/Plan Chief Complaint/Hosp Course 67 yo female with hx DMII came in with diarrhea, fever/dysuria/lower abdominal cramps. 1.Dysuria/Pelvic pain, likely 2/2 neurogenic bladder with bilateral hydroureteronephrosis which is secondary to long-standing history of poorly controlled diabetes. Symptoms resolved. -Continue Flomax,pain control PRN. -Renal ultrasound today for f/u and consider discontinuation of Dockery. 2. Poorly controlled DMII. A1c 12. -Continue Lantus/premeals/ISS and titrate as needed -carb controlled diet, DM education. 3. Status post sepsis, likely secondary to possible tracheobronchitis/ pneumonitis versus gastroenteritis. -Continue abx. Unable to send C. difficile upon arrival. So far cultures negative. 4. Lung nodule. Stable appearance and CT. - Follow-up CT chest recommended in 6-12 months. 5. Benign ovarian cyst. -Follow-up ultrasound in 3 months is advised. 6. Right middle and left lower lobe bronchiolitis per imaging. Currently patient without any bronchospasm and she is clinically stable. -Bronchodilators, antibiotics. -Recommend lifestyle and home remedies and outpatient pulmonary follow-up. 7.Anemia,likely chronic. H&H stable. -Monitor. 8. Diarrhea, likely gastroenteritis. Resolved. -C. difficile was not collected and diarrhea nonstop. 9. Benign thyroid nodule. Follow-up CT in 12 months recommended. 10. Dietary protein deficiency. -On dietary protein supplements. 11. Headache. Likely concurrent. -As needed pain medications. CT brain to evaluate for other causes. Plan: Overall, patient with improvement in her symptoms. Will have physical therapy evaluate the patient. Follow-up renal ultrasound. If patient remains stable, likely discharge planning in a.m. with outpatient primary care and pulmonary follow-up. Patient was seen in collaboration with . Problems: Subjective 24 Hr Interval Summary Free Text/Dictation Patient complains of headache and feeling weak. Remains afebrile. She denies any abdominal pain, dysuria or other discomfort. Exam/Review of Systems Vital Signs Vitals Vital Signs Date Time Temp Pulse Resp B/P Pulse Ox O2 Delivery O2 Flow Rate FiO2 09/08/17 08:33 69 18 96 21 09/08/17 07:30 97.9 125/60 09/05/17 21:47 Room Air Intake and Output 09/07/17 09/07/17 09/08/17 15:00 23:00 07:00 Intake Total 2030 ml 975 ml Output Total 1900 ml 800 ml Balance 130 ml 175 ml Exam General: Thin-bulit, frail looking female, not in any acute distress . HEENT: Normocephalic, Atraumatic, No laceration or hematoma; Eyes: PEERL, Conjunctiva clear, Anicteric sclera Neck: Supple without any lymphadenopathy, nontender, no JVD, no carotid bruits, trachea midline, no thyromegaly Cardiac: S1, S2 auscultated, regular rhythm and rate, no mumurs or gallop Pulmonary: Normal respiratory effort. Chest clear to auscultation bilaterally, no adventitious breath sounds GI:Soft, nontender, no masses, no rebound tenderness or guarding. Bowel sounds active on all four quadrants Genitourinary: With Dockery. Denies any discomfort. Extremities: No cyanosis, clubbing, or edema. Pulses [2+] bilaterally. Full ROM on all four extremities. No focal weakness appreciated. Neurologic: Alert to person, place, time, and situation. Affect appropriate, intact sensation. Skin: Clean,dry, and intact. No ecchymosis, no rashes, or lesions Results Result Diagram: 09/08/17 0556 09/08/17 0556 Results 24 hrs Laboratory Tests Test 09/07/17 12:45 09/07/17 17:37 09/07/17 20:49 09/08/17 00:23 Bedside Glucose 136 160 212 Vancomycin Level Trough 5.3 L Test 09/08/17 01:59 09/08/17 05:56 09/08/17 08:40 Bedside Glucose 177 163 White Blood Count 8.4 Red Blood Count 3.13 L Hemoglobin 9.3 L Hematocrit 29.1 L Mean Corpuscular Volume 93.0 Mean Corpuscular Hemoglobin 29.7 Mean Corpuscular Hemoglobin Concent 32.0 Red Cell Distribution Width 12.7 Platelet Count 222 Mean Platelet Volume 9.8 Neutrophils % 70.2 Lymphocytes % 22.7 Monocytes % 5.6 Eosinophils % 0.7 Basophils % 0.4 Nucleated Red Blood Cells % 0.0 Neutrophils # 5.9 Lymphocytes # 1.9 Monocytes # 0.5 Eosinophils # 0.1 Basophils # 0.0 Nucleated Red Blood Cells # 0.0 Sodium Level 142 Potassium Level 3.4 L Chloride Level 113 H Carbon Dioxide Level 22 Anion Gap 10 Blood Urea Nitrogen 13 Creatinine 0.56 Glucose Level 175 Calcium Level 8.2 L Medications Medications Current Medications Acetaminophen (Tylenol Tab) 650 mg Q6H PRN PO PAIN AND OR ELEVATED TEMP Last administered on 09/07/17 16:00; Admin Dose 650 MG; Start 09/05/17 at 23:30 Ondansetron HCl (Zofran Inj) 4 mg Q6H PRN IV NAUSEA AND/OR VOMITING; Start at 23:30 Diagnostic Test (Pha) (Accu-Chek) 1 ea 02 XX ; Start 09/06/17 at 02:00 Diagnostic Test (Pha) (Accu-Chek) 1 ea 02 XX Last administered on 09/08/17 02: 04; Admin Dose 1 EA; Start 09/06/17 at 02:00 Miscellaneous Information 1 ea NOTE XX ; Start 09/06/17 at 00:30 Glucose (Glutose) 15 gm Q15M PRN PO DECREASED GLUCOSE; Start 09/06/17 at 00:30 Glucose (Glutose) 22.5 gm Q15M PRN PO DECREASED GLUCOSE; Start 09/06/17 at 00: 30 Dextrose (D50w Syringe) 25 ml Q15M PRN IV DECREASED GLUCOSE; Start 09/06/17 at 00:30 Dextrose (D50w Syringe) 50 ml Q15M PRN IV DECREASED GLUCOSE; Start 09/06/17 at 00:30 Glucagon (Glucagen) 1 mg Q15M PRN IM DECREASED GLUCOSE; Start 09/06/17 at 00: 30 Glucose (Glutose) 15 gm Q15M PRN BUCCAL DECREASED GLUCOSE; Start 09/06/17 at 00:30 Insulin Glargine 20 unit 20 unit DAILY@08 SC Last administered on 09/07/17 08 :42; Admin Dose 20 UNIT; Start 09/06/17 at 08:00 Cefepime HCl (Maxipime 1gm/50 ml (Pmx)) 50 ml @ 100 mls/hr Q12 IVPB Last administered on 09/07/17 20:50; Admin Dose 100 MLS/HR; Start 09/06/17 at 09: 00 Tamsulosin HCl 0.4 mg 0.4 mg HS PO Last administered on 09/07/17 20:49; Admin Dose 0.4 MG; Start 09/06/17 at 21:00 Sodium Chloride (1/2 NS) 1,000 ml @ 75 mls/hr [id number] IV Last administered on 09/07/17 18:01; Admin Dose 75 MLS/HR; Start 09/06/17 at 10:30 Guaifenesin/ Dextromethorphan 10 ml 10 ml Q4H PRN PO COUGH; Start 09/07/17 at 09:00 Vancomycin HCl (Vancocin) 100 ml @ 100 mls/hr Q8H IVPB ; Start 09/08/17 at 10: 00 ELVIA VASQUEZ NP Sep 08, 2017 09:02
[2017-09-08] MEDS: IBUPROFEN 400 MG TAB PO SCH ×3 (09:06→20:59)
[2017-09-08] MEDS ORDERED: VANCOMYCIN 500MG/NS (PMX) 100 ML IVPB SCH (10:00)
--- NOTE | 2017-09-08 10:28 | RADRPT ---
PROCEDURE: US Renal CLINICAL INDICATION: Follow-up hydronephrosis. TECHNIQUE: Multiple sonographic images of the kidneys and bladder were obtained. Evaluation of th e kidneys and bladder was performed as well with amezquita scale and color and Doppler evaluation using a curved array transducer. The images were reviewed on a high-resolution PACS workstation. COMPARISON: CT abdomen pelvis 09/05/2017. FINDINGS: The right kidney measures 10.5 cm. The left kidney measures 11.5 cm. There is normal echogenicity within the parenchyma of the kidneys bilaterally. There are no masses or abnormal calcifications. The hydronephrosis seen on the CT from 09/05/2017 lafleur s apparently resolved.. No perinephric fluid collection is seen. Evaluation of the urinary bladder is unremarkable. There is a 3.4 cm unilocular right adnexal cyst slightly smaller than seen on the CT scan 09/05/2017 . IMPRESSION: 1. This interval resolution of mild hydronephrosis since the CT of 09/05/2017. 2. 3.4 cm simple right adnexal cyst. RPTAT: [facility] Physician Evita Date Time Electronically viewed and signed by Physician Evita on 09/08/2017 10:28 [place]/
[2017-09-08 14:04] VITALS: BP 129/58; RESP 16
--- NOTE | 2017-09-08 16:28 | RADRPT ---
PROCEDURE: CT brain without contrast CLINICAL INDICATION: Headache TECHNIQUE: CT of the brain without contrast performed on a multidetector CT scanner, with multiplan ar reformats. One or more of the following dose reduction techniques were used: Automated exposure control, adjustment in mA and / or kV according to patient size, use of iterative reconstructive gunjan hnique. CTDIvol = 44 mGy; DLP = 630 mGy-cm. COMPARISON: None available FINDINGS: No acute intracranial hemorrhage is identified. No extra-axial fluid collection is seen. There is no mass effect. No midline shift is identified. The ventricles and sulci are mildly enlarged compatible with volume loss. There are minimal areas of hypodensity in the periventricular - deep white matter which are nonspeci fic but suggestive of chronic small vessel ischemic changes. Medina-white differentiation is preserve d. Atherosclerotic calcifications of the intracranial internal carotid arteries are noted. Calvarium and skull base are intact. Mastoid air cells and imaged paranasal sinuses grossly clear. IMPRESSION: 1. No evidence of acute intracranial pathology. 2. Mild volume loss, with minimal chronic small vessel ischemic changes. RPTAT: VV .Rudy Arodn MD, MD Date Time Electronically viewed and signed by .Rudy Ardon MD, MD on 09/08/2017 16:28 .O/
[2017-09-08] MEDS: LEVOFLOXACIN 500 MG TAB PO SCH (17:23)
[2017-09-08 20:00] VITALS: BP 160/67; RESP 20
[2017-09-08] MEDS: TAMSULOSIN (SR) 0.4 MG CAP PO SCH (20:59)
[2017-09-09] MEDS: ALBUTEROL/IPRATROPIUM (NEB) 3 ML AMP HHN SCH ×3 (01:16→08:04)
[2017-09-09] MEDS: SOD CHLORIDE 0.45% 1,000 ML IV SCH ×2 (01:45→05:10)
[2017-09-09 02:00] VITALS: BP 148/65; RESP 20
[2017-09-09] MEDS: ACCU-CHEK XX SCH ×2 (02:00)
[2017-09-09] MEDS: LEVOFLOXACIN 500 MG TAB PO SCH (06:00)
[2017-09-09 07:24] VITALS: BP 133/64; RESP 18
[2017-09-09] MEDS: IBUPROFEN 400 MG TAB PO SCH (08:15)
[2017-09-09] MEDS: INSULIN ASPART [NOVOLOG] 3 ML PEN SC SCH ×2 (08:41)
[2017-09-09] MEDS: INSULIN GLARGINE [LANtus] 3 ML PEN SC SCH (08:41)
--- NOTE | 2017-09-09 08:51 | PDOCDIS ---
Discharge Instructions CONDITION Patient Condition: Stable HOME CARE INSTRUCTIONS: Special Diet: Carb Controlled Diet FOLLOW UP/APPOINTMENTS Follow-up Plan 1.Follow up with primary care physician in 1 week Recommend outpatient pulmonary referral for bronchiolitis Follow-up CT chest recommended in 6-12 months. Follow-up thyroid US in 3 months If you don't have one please let someone know, we can give you resources that may help you pick one. You may also call your insurance company to assign one to you. Review your medication list with your nurse before leaving and if you need new prescriptions please let your nurse know. I may have made changes to your home medications or given you new prescriptions, please let your primary doctor know as well. Stay compliant with your medications and report any side effects to your PCP or pharmacist. Return to the ER if you have any concerns and cannot reach your doctors or call your insurance company, they usually have a nurse that can help you. 2. Call 911 or go to the nearest emergency room if experiencing loss of consciousness, dizziness, chest pain, shortness of breath, vomiting/abdominal pain, speech difficulties, motor weakness or any unusual symptoms. ELVIA VASQUEZ NP Sep 09, 2017 08:51
[2017-09-09] MEDS ORDERED: GLUCOMETER (08:56)
[2017-09-09] MEDS ORDERED: IBUP400T22 PO (08:56)
[2017-09-09] MEDS ORDERED: ALBU8.5H3 INH (08:56)
[2017-09-09] MEDS ORDERED: UDROBDM PO (08:56)
[2017-09-09] MEDS ORDERED: LANT3I SC (08:56)
[2017-09-09] MEDS ORDERED: TAMS-14 PO (08:56)
[2017-09-09] MEDS ORDERED: LEVO500T72 PO (08:56)
[2017-09-09] MEDS ORDERED: METF500T4 PO (08:56)
--- NOTE | 2017-09-09 08:57 | DS ---
Date/Time of Note Date/Time of Note DATE: 09/09/17 TIME: 08:57 Discharge Summary Admission/Discharge Info Admit Date/Time Sep 05, 2017 at 21:13 Discharge Date/Time Discharge Diagnosis 1.Dysuria/Pelvic pain, likely 2/2 neurogenic bladder with bilateral hydroureteronephrosis which is secondary to long-standing history of poorly controlled diabetes. Symptoms resolved. 2. Poorly controlled DMII. A1c 12. 3. Status post sepsis, likely secondary to possible tracheobronchitis/ pneumonitis versus gastroenteritis. 4. Lung nodule , Follow-up CT chest recommended in 6-12 months. 5. Benign ovarian cyst. Follow-up ultrasound in 3 months is advised. 6. Right middle and left lower lobe bronchiolitis per imaging. clinically stable. 7.Anemia,likely chronic. 8. Diarrhea, likely gastroenteritis. Resolved. 9. Benign thyroid nodule. Follow-up CT in 12 months recommended. 10. Dietary protein deficiency Patient Condition: Stable Procedures 09/05/2017. Chest x-ray. 1. Patchy bibasilar subsegmental atelectasis versus pneumonitis, left greater than right. 2. Vascular calcifications consistent with atherosclerosis. 09/05/2017. CT abdomen and pelvis without contrast. IMPRESSION: 1. Bronchiolitis in the visualized right middle lobe with a sub solid 10 mm nodule in the medial basal right lower lobe with surrounding ground-glass opacities, which may be infectious/inflammatory in nature given the additional findings. Additional nonspecific ground-glass opacities scattered throughout both lungs with evidence of bronchitis. Dedicated chest CT may be warranted for further evaluation. 2. Distended urinary bladder with mild bilateral hydroureteronephrosis, but no radiopaque obstructing stone identified. Differential considerations include neurogenic bladder and bladder outlet obstruction. 3. Simple 4 cm right adnexal cyst. Pelvic ultrasound is recommended for further evaluation. 4. Vascular calcifications consistent with atherosclerosis. 09/06/2017. Pelvic ultrasound. IMPRESSION: 1. Endometrium and left ovary not visualized. 2. Benign-appearing right ovarian cyst measuring 3.7 x 2.7 x 2.9 centimeter. Follow-up ultrasound in 3 months is advised. 3. Otherwise unremarkable pelvic ultrasound. 09/06/2007. CT chest with contrast IMPRESSION: 1. Endometrium and left ovary not visualized. 2. Benign-appearing right ovarian cyst measuring 3.7 x 2.7 x 2.9 centimeter. Follow-up ultrasound in 3 months is advised. 3. Otherwise unremarkable pelvic ultrasound. 09/07/2017. Ultrasound thyroid. IMPRESSION: 1. Small bilateral thyroid nodules, with a benign appearance. No further evaluation required. 2. The 2.5 cm nodule in the isthmus seen on prior CT scan is not well seen with ultrasound. Follow-up CT scan of the neck in 12 months is advised. 3. Otherwise unremarkable study. 09/08/2017. Renal ultrasound. IMPRESSION: 1. This interval resolution of mild hydronephrosis since the CT of 09/05/2017. 2. 3.4 cm simple right adnexal cyst. 09/08/2017. CT brain without contrast. IMPRESSION: 1. No evidence of acute intracranial pathology. 2. Mild volume loss, with minimal chronic small vessel ischemic changes. Hx of Present Illness Hospital Course 67 yo female with hx DMII came in with diarrhea, fever/dysuria/lower abdominal cramps who was found to be in sepsis with chest x-ray findings of patchy bilateral segmental atelectasis versus pneumonitis. CT abdomen/pelvis showed bronchiolitis, right middle lobe with 10 mm nodule. Mild bilateral hydroureteronephrosis. She was admitted. Patient was continued on broad- spectrum antibiotics. Her cultures were negative. Patient was noted with poorly controlled diabetes with A1c 12. Most likely, etiology of dysuria with pelvic pain likely secondary to neurogenic bladder with bilateral hydroureteronephrosis shown in the imaging. Patient was treated with Dockery catheter and Flomax with pain control as needed. Her symptoms resolved. A repeat renal ultrasound showed improvement in hydronephrosis. Sepsis resolved. Most likely cause of sepsis is possible tracheobronchitis/pneumonitis versus gastroenteritis. Patient was able to void without any difficulties after Dockery discontinuation. For diabetes, patient was continued on insulin sliding scale as well as pre-meals and Lantus. Her glucose was controlled adequately. Patient had diabetic education. Apparently, patient was prescribed with insulin and metformin as outpatient which she was not able to take due to inability to refill prescriptions. Patient also had right middle and left lower lobe bronchiolitis per imaging for which she was treated with as needed bronchodilators, and recommended lifestyle and home remedies and outpatient pulmonary follow-up. Patient did not have any diarrhea in-house. Therefore, we were not able to collect any stool specimen for for detection of C. difficile. Patient was also noted with a low prealbumin, she was recommended on dietary protein supplements. Patient also noted with incidental finding of benign thyroid nodule for which she was recommended to have a repeat CT neck in 6-12 months. During the course of hospitalization patient also complained of headache for which a CT brain was negative for any acute intracranial pathology. Her headache was resolved with Motrin. At this time, patient is feeling back to her baseline. She was evaluated by physical therapy. Patient was able to tolerate diet and activities without any assist. At this time, there is no further inpatient workup indicated and patient is stable for outpatient follow-up. She was also recommended to complete a full course of oral Levaquin upon discharge for possible tracheobronchitis which was treated in -house. Disposition: Patient will be discharged home. She was instructed to follow-up with her primary care physician as outpatient. Patient was given prescriptions with newly added medications. Patient and family verbalized discharge instructions. Approximately 1600 spent in coordinating the discharge on this patient.. Patient was seen in collaboration with Dr. Talbert. Home Meds Active Scripts Albuterol Sulfate* (Proair HFA*) 8.5 Gm Hfa.aer.ad, 2 PUFF INH Q4H Y for WHEEZING AND SOB, #1 INHALER Prov:ELVIA VASQUEZ NP 09/09/17 Metformin* (Glucophage*) 500 Mg Tab, 500 MG PO WITH BREAKFAST DINNE, #60 TAB Prov:ELVIA VASQUEZ NP 09/09/17 [Glucometer] No Conflict Check, 1, #1 Patient to check blood glucose 3 times a day. Provide 30 day supplies of lancets, and test strips. Prov:ELVIA VASQUEZ NP 09/09/17 Insulin Glargine* (Lantus*) 100 Unit/Ml Soln, 20 UNIT SC DAILY@08 for 30 Days, # 1 SYR Okay to substitute with vial if pen is not covered by insurance. Provide patient with 30 day supplies of insulin syringes, needles, lancets and test strips. Patient to check blood glucose 3 times a day. Prov:ELVIA VASQUEZ NP 09/09/17 Guaifenesin-Dextromethorphan* (Robitussin* DM) 100MG/10MG/5ML Syrup, 10 ML PO Q4H Y for COUGH for 7 Days, #1 BOT Prov:ELVIA VASQUEZ NP 09/09/17 Ibuprofen* (Ibuprofen*) 400 Mg Tablet, 400 MG PO Q6H Y for HEADACHE, #60 TAB Prov:VASQUEZ,ELVIA V. [employer] 09/09/17 Tamsulosin Hcl* (Flomax*) 0.4 Mg Cap.er.24h, 0.4 MG PO HS for 5 Days, #5 CAP Prov:VASQUEZ,ELVIA V. [employer]OCIATE 09/09/17 Levofloxacin* (Levaquin*) 500 Mg Tablet, 500 MG PO DAILY@06 for 5 Days, #5 TAB Prov:VASQUEZ,ELVIA V. [employer] ASSOCIATE 09/09/17 Follow-up Plan 1.Follow up with primary care physician in 1 week Recommend outpatient pulmonary referral for bronchiolitis Follow-up CT chest recommended in 6-12 months. Follow-up thyroid US in 3 months If you don't have one please let someone know, we can give you resources that may help you pick one. You may also call your insurance company to assign one to you. Review your medication list with your nurse before leaving and if you need new prescriptions please let your nurse know. I may have made changes to your home medications or given you new prescriptions, please let your primary doctor know as well. Stay compliant with your medications and report any side effects to your PCP or pharmacist. Return to the ER if you have any concerns and cannot reach your doctors or call your insurance company, they usually have a nurse that can help you. 2. Call 911 or go to the nearest emergency room if experiencing loss of consciousness, dizziness, chest pain, shortness of breath, vomiting/abdominal pain, speech difficulties, motor weakness or any unusual symptoms. Primary Care Provider [facility] Pending Labs Laboratory Tests Test 09/08/17 11:59 09/08/17 17:21 09/08/17 20:57 09/09/17 05:13 Bedside Glucose 182mg/dL (70-220) 129mg/dL (70-220) 137mg/dL (70-220) Sodium Level 143mmol/L (135-144) Potassium Level 3.7mmol/L (3.5-5.1) Chloride Level 112mmol/L (97-110) Carbon Dioxide Level 21mmol/L (21-31) Anion Gap 14 (8-16) Blood Urea Nitrogen 11mg/dl (7-20) Creatinine 0.53mg/dl (0.44-1.00) Glucose Level 164mg/dl (70-220) Calcium Level 8.3mg/dl (8.4-10.2) Test 09/09/17 05:14 09/09/17 08:06 White Blood Count 8.010^3/ul (4.8-10.8) Red Blood Count 3.0810^6/ul (4.20-5.40) Hemoglobin 9.5g/dl (12.0-16.0) Hematocrit 28.4% (37.0-47.0) Mean Corpuscular Volume 92.2fl (82.0-101.0) Mean Corpuscular Hemoglobin 30.8pg (29.0-33.0) Mean Corpuscular Hemoglobin Concent 33.5g/dl (32.0-37.0) Red Cell Distribution Width 12.5% (11.5-14.5) Platelet Count 24633^3/UL (140-415) Mean Platelet Volume 9.5fl (7.4-10.4) Neutrophils % 60.1% (39.0-77.0) Lymphocytes % 33.0% (15.0-51.0) Monocytes % 5.2% (0.0-11.0) Eosinophils % 1.1% (0.0-7.0) Basophils % 0.4% (0.0-2.0) Nucleated Red Blood Cells % 0.0/100WBC (0.0-0.0) Neutrophils # 4.810^3/ul (1.6-7.5) Lymphocytes # 2.710^3/ul (0.8-2.9) Monocytes # 0.410^3/ul (0.3-0.9) Eosinophils # 0.110^3/ul (0.0-0.5) Basophils # 0.010^3/ul (0.0-0.1) Nucleated Red Blood Cells # 0.010^3/ul (0.0-0.0) Bedside Glucose 162mg/dL (70-220) ELVIA VASQUEZ NP Sep 09, 2017 08:57
== END 2017-09-09 12:00 | disposition home or self-care (01) | DRG 871 ==
LOC: E/R 18:17 → MS2 21:13
PROVIDERS: ADMIT Internal Medicine; ATTEND Internal Medicine
DX: A41.9 Sepsis, unspecified organism (principal); J18.9 Pneumonia, unspecified organism; E46 Unspecified protein-calorie malnutrition; E10.65 Type 1 diabetes mellitus with hyperglycemia; N39.0 Urinary tract infection, site not specified; J21.9 Acute bronchiolitis, unspecified; Z68.1 Body mass index [BMI] 19.9 or less, adult; N13.30 Unspecified hydronephrosis; Y95 Nosocomial condition; R91.1 Solitary pulmonary nodule; D50.0 Iron deficiency anemia secondary to blood loss (chronic); R30.0 Dysuria; N83.291 Other ovarian cyst, right side; K52.9 Noninfective gastroenteritis and colitis, unspecified; E04.1 Nontoxic single thyroid nodule; N31.9 Neuromuscular dysfunction of bladder, unspecified
CPT/HCPCS: 36415; 70450; 71010; 71260; 74176; 76536; 76775; 76856; 80048; 80053; 80061; 80202; 81001; 82105; 82378; 82962; 83036; 83605; 83615; 83690; 83735; 84100; 84134; 84436; 84443; 84479; 84481; 84484; 85025; 85610; 85730; 86301; 87040; 87070; 87086; 87400; 93005; 94640; 94664; 96365; 96366; 96368; 96372; 97116; 97161; J0692; J1815; J3370; J7030; Q9967